=== PATIENT | male | born 1955 | race Caucasian/White ===

== ENCOUNTER 2021-07-05 17:22 | Emergency (ER) | payer OTHER ==
[~2021-07-05] VITALS: Ht 182.9 cm; Wt 97.5 kg
[2021-07-05 17:37] VITALS: BP 155/85
[2021-07-05 17:45] VITALS: BP 155/85
--- NOTE | 2021-07-05 19:10 | DIREP ---
PROCEDURE:XRAY FOOT MIN 3 VWS-LT COMPARISON:None. INDICATIONS:foot contusion FINDINGS: BONES:No fractures or other acute bony abnormalities.. JOINTS:Normal. SOFT TISSUES:Normal. OTHER:No additional findings. CONCLUSION:No acute left foot abnormalities. Dictated by: Thaddeus Gibbs M.D. on 07/05/2021 at 07:08 PM
--- NOTE | 2021-07-05 19:34 | ER.PDOC ---
General Chief Complaint: Extremities Stated Complaint: LEFT FOOT PAIN Time seen by MD: 19:32 Source: patient Exam Limitations: no limitations History of Present Illness Initial Comments 66-year-old male presents with left foot pain. Onset 1 hour prior to arrival when he dropped a iron pipe on his foot. No other injuries. Is not on blood thinners. Intact sensation strength in ankle. No vomiting or diarrhea. No pain with motion of his toes. Past Medical History Medical History: cardiac problems Surgical History: pacemaker/ICD Social History Alcohol Use: none Drug Use: none Review of Systems Constitutional: no symptoms reported EENTM: no symptoms reported Respiratory: no symptoms reported Cardiovascular: no symptoms reported Gastrointestinal: no symptoms reported Genitourinary: no symptoms reported Musculoskeletal: see HPI, other (Left foot pain on the dorsum) Skin: no symptoms reported Physical Exam General Appearance: Alert Foot: nml inspection Ankle: nml inspection Gait: normal Neuro: sensation nml Vascular: no vascular compromise Tendons: tendon function nml Leg/Knee/Thigh: uninjured above ankle Comments Left foot display some slight bruising over the first and second metatarsal area with intact range of motion of the toes and strength of the ankle Results/Orders Results/Orders Orders - DARRION GALO MD Xr Foot Lt (07/05/21 18:28) Vital Signs Date Time Temp Pulse Resp B/P (MAP) Pulse Ox O2 Delivery O2 Flow Rate FiO2 07/05/21 17:45 98.0 68 20 155/85 (108) 100 Room Air 07/05/21 17:37 98.0 68 20 100 07/05/21 17:37 98.0 68 20 ER DEPART Departure Time of Disposition: 19:33 Disposition: 01 HOME / SELF CARE / HOMELESS Impression: Primary Impression: Contusion of left foot Condition: Stable Referrals: PCP,UNKNOWN (PCP) PRIMARY CARE PROVIDER Duration or Time Spent with Pa: DARRION PRASAD MD Jul 05, 2021 19:34
[2021-07-05 19:38] VITALS: BP 140/82
== END 2021-07-05 19:46 | disposition home or self-care (01) ==
LOC: ER 17:22
DX: S90.32XA Contusion of left foot, initial encounter (principal); W20.8XXA Other cause of strike by thrown, projected or falling object, initial encounter; Y93.89 Activity, other specified; Y92.89 Other specified places as the place of occurrence of the external cause; Y99.8 Other external cause status
CPT/HCPCS: 99283; 73630-LT